=== PATIENT | female | born 1970 | race Caucasian/White ===

== ENCOUNTER 2022-08-13 01:37 | Emergency (ER) | payer OTHER ==
[2022-08-13 01:49] VITALS: BP 91/56; PULSE 72; RESP 18; TEMP 98.6
[2022-08-13] MEDS ORDERED: HYDROmorphone 1 MG/ML 1 ML SYRINGE IM STA (02:10)
[2022-08-13] MEDS ORDERED: KETOROLAC 15 MG/ML 1 ML VIAL IVP STA (02:27)
--- NOTE | 2022-08-13 02:27 | ED ---
General Adult HPI - General Chief complaint: Extremity Injury, Lower Stated complaint: Broken Left Ankle Time Seen by Provider: 08/13/22 01:40 Source: patient, RN notes reviewed, old records reviewed Mode of arrival: wheelchair Limitations: no limitations - History of Present Illness Initial comments: 51-year-old female presents with trip and fall and left ankle pain. Denies head or neck trauma. No anticoagulation. Injury isolated to the left ankle. Patient felt a little significant snap and was unable to bear weight secondary to pain. - Related Data Previous Rx's Medication Instructions Recorded HYDROcodone/APAP 5-325MG [[place] 1 tab PO Q6HR PRN #12 tab 08/13/22 5-325] Ibuprofen [Motrin] 600 mg PO Q8HR PRN #24 tab 08/13/22 Allergies Allergy/AdvReac Type Severity Reaction Status Date / Time No Known Allergies Allergy Verified 08/13/22 01:49 Review of Systems ROS Statement: Those systems with pertinent positive or pertinent negative responses have been documented in the HPI. ROS Other: All systems not noted in ROS Statement are negative. Past Medical History Past Medical History: No Reported History History of Any Multi-Drug Resistant Organisms: None Reported Past Surgical History: Appendectomy Additional Past Surgical History / Comment(s): Colon polyps removal Past Psychological History: Anxiety Smoking Status: Current every day smoker Past Alcohol Use History: Occasional Past Drug Use History: None Reported General Exam Limitations: no limitations General appearance: alert, in no apparent distress Head exam: Present: atraumatic, normocephalic Eye exam: Present: normal appearance, PERRL ENT exam: Present: normal exam Neck exam: Present: normal inspection. Absent: tenderness, meningismus Respiratory exam: Present: normal lung sounds bilaterally. Absent: respiratory distress, wheezes Cardiovascular Exam: Present: regular rate, normal rhythm GI/Abdominal exam: Present: soft. Absent: distended, tenderness Extremities exam: Present: other (Deformity noted to the left ankle. Normal cap refill, 2+ pedal pulse) Neurological exam: Present: alert, oriented X3 Psychiatric exam: Present: normal affect, normal mood Skin exam: Present: warm, dry, intact. Absent: cyanosis, diaphoretic Course Vital Signs 08/13/22 01:44 Temperature 98.6 F Pulse Rate 72 Respiratory 18 Rate Blood Pressure 91/56 O2 Sat by Pulse 98 Oximetry Procedures - Orthopedic Fracture Reduction Fracture #1 Consent Obtained: verbal consent Side: left Fracture Reduction Location: tibia, fibula Analgesia: other (Toradol and Dilaudid) Technique: direct manipulation Post Reduction X-rays Demonstrate: acceptable reduction Post-Reduction Neuro Exam: intact Post-Reduction Vascular Exam: intact Splint Applied: Yes Patient Tolerated Procedure: well - Orthopedic Splinting/Casting Injury #1 Side: left Lower Extremity Injury Location: ankle Lower Extremity Immobilizer: posterior splint, stirrup splint Other Orthopedic Equipment: crutches Medical Decision Making - Medical Decision Making Was pt. sent in by a medical professional or institution (, PA, TANK TRUCK MILK RECEIVER, urgent care, hospital, or [place] [facility]...) When possible be specific @ -No Did you speak to anyone other than the patient for history (EMS, parent, family, police, friend...)? What history was obtained from this source @ -No Did you review nursing and triage notes (agree or disagree)? Why? @ -I reviewed and agree with nursing and triage notes Were old charts reviewed (outside hosp., previous admission, EMS record, old EKG, old radiological studies, urgent care reports/EKG's, [place] [facility] records)? Report findings @ -No old charts were reviewed Differential Diagnosis (chest pain, altered mental status, abdominal pain women, abdominal pain men, vaginal bleeding, weakness, fever, dyspnea, syncope, headache, dizziness, GI bleed, back pain, seizure, CVA, palpatations, mental health, musculoskeletal)? @ -Differential Musculoskeletal Muscular strain, contusion, ligament sprain, fracture, arthritis, septic arthritis, bursitis, cellulitis, muscle spasm, nerve compression, DVT, arterial occlusion, herpes zoster, electrolyte abnormality, tumor.... This is not meant to be in all inclusive list EKG interpreted by me (3pts min.). @ -As above X-rays interpreted by me (1pt min.). @ -Reviewed by myself, trimalleolar fracture with dislocation of the ankle. Repeat films shows satisfactory reduction. CT interpreted by me (1pt min.). @ -None done U/S interpreted by me (1pt. min.). @ -None done What testing was considered but not performed or refused? (CT, X-rays, U/S, labs)? Why? @ -None What meds were considered but not given or refused? Why? @ -None Did you discuss the management of the patient with other professionals (professionals i.e. , PA, TANK TRUCK MILK RECEIVER, lab, RT, psych nurse, mental health social worker, black and white printer operator, teacher, banking services officer, housing case manager)? Give summary @ -Dr. Fleming covering for orthopedics Was smoking cessation discussed for >3mins.? @ -No Was critical care preformed (if so, how long)? @ -No Were there social determinants of health that impacted care today? How? (Homelessness, low income, unemployed, alcoholism, drug addiction, transportation, low edu. Level, literacy, decrease access to med. care, [place] [facility], rehab)? @ -No Was there de-escalation of care discussed even if they declined (Discuss DNR or withdrawal of care, Hospice)? DNR status @ -No What co-morbidities impacted this encounter? (DM, HTN, Smoking, COPD, CAD, Cancer, CVA, ARF, Chemo, Hep., AIDS, mental health diagnosis, sleep apnea, morbid obesity)? @ -None Was patient admitted / discharged? Hospital course, mention meds given and route, prescriptions, significant lab abnormalities, going to OR and other pertinent info. @ -51-year-old female with mechanical fall and left ankle injury. Patient has x-ray of trimalleolar fracture dislocation of the left ankle. She does have normal sensation and 2+ pedal pulses. This was able to be reduced with intramuscular medication not requiring procedural sedation. Repeat x-ray does show significant improvement in fracture alignment with residual subluxation. Patient has brisk cap refill and normal pulse exam. I did discuss case with Dr. Fleming covering for orthopedics. The patient lives in [place] and it is felt that the patient would be best served by returning home for fracture management at home. She is prescribed pain medication. She will be nonweightbearing she's given crutches in the emergency department. She is provided at risk for follow-up in [place]. She is advised to return to this emergency department or any emergency department if she should develop new or worsening symptoms or pain is not manageable. Undiagnosed new problem with uncertain prognosis? @ -No Drug Therapy requiring intensive monitoring for toxicity (Heparin, Nitro, Insulin, Cardizem)? @ -No Were any procedures done? @ -[Yes, fracture reduction and orthopedic splinting Diagnosis/symptom? @ -Trimalleolar fracture of the left ankle Acute, or Chronic, or Acute on Chronic? @ -[Acute Uncomplicated (without systemic symptoms) or Complicated (systemic symptoms)? @ -[Uncomplicated Side effects of treatment? @ -No Exacerbation, Progression, or Severe Exacerbation? @ -No Poses a threat to life or bodily function? How? (Chest pain, [place], [place], pneumonia, PE, COPD, DKA, ARF, appy, cholecystitis, CVA, Diverticulitis, Homicidal, Suicidal, threat to staff... and all critical care pts) @ -No Disposition Clinical Impression: Trimalleolar fracture of left ankle Disposition: HOME SELF-CARE Condition: Fair Instructions (If sedation given, give patient instructions): Ankle Fracture (ED) Additional Instructions: Please follow up with your orthopedic surgeon. If there is any new concerns, pain is not manageable at home. Please feel free to return to the emergency department. Prescriptions: Ibuprofen [Motrin] 600 mg PO Q8HR PRN #24 tab PRN Reason: Pain HYDROcodone/APAP 5-325MG [[place] 5-325] 1 tab PO Q6HR PRN #12 tab PRN Reason: Pain Is patient prescribed a controlled substance at d/c from ED?: No Referrals: None,Stated [REFERRING] - 1-2 days Mukesh Fleming MD [Medical Doctor] - 1-2 days Time of Disposition: 02:49
--- NOTE | 2022-08-13 02:35 | XR ---
EXAM: XR Left Ankle Complete, 3 or More Views CLINICAL HISTORY: ITS.REASON XR Reason: fall TECHNIQUE: Frontal, lateral and oblique views of the left ankle. COMPARISON: No relevant prior studies available. FINDINGS: Bones/joints: Trimalleolar eversion left ankle fracture dislocation. Moderate calcaneal heel spur. The distal tibia is dislocated anteriorly relative to the talus. Posterior malleolus fracture involves approximately a third of the distal tibia. Soft tissues: Diffuse soft tissue swelling. IMPRESSION: Trimalleolar eversion left ankle fracture dislocation.
[2022-08-13] MEDS ORDERED: HYDROcodone/APAP 5-325MG 1 EACH TAB PO STA (02:48)
--- NOTE | 2022-08-13 03:13 | XR ---
EXAM: XR Left Ankle Complete, 3 or More Views CLINICAL HISTORY: ITS.REASON XR Reason: fall TECHNIQUE: Frontal, lateral and oblique views of the left ankle. COMPARISON: 08/13/2022 at 1:58 AM FINDINGS: Bones/joints: There is been recent reduction of the ankle dislocation in near anatomic position. There remains mild widening of the medial ankle mortise. The trimalleolar fracture remains. Images taken through a posterior splint limits fine bony detail. Trimalleolar fracture. Soft tissues: Unremarkable. IMPRESSION: 1. Reduction of left ankle fracture dislocation in near anatomic position.
== END 2022-08-13 03:24 | disposition home or self-care (01) ==
LOC: EC 01:37
DX: S82.852A Displaced trimalleolar fracture of left lower leg, initial encounter for closed fracture (principal); F17.200 Nicotine dependence, unspecified, uncomplicated; Z86.59 Personal history of other mental and behavioral disorders; W01.0XXA Fall on same level from slipping, tripping and stumbling without subsequent striking against object, initial encounter
CPT/HCPCS: 73600; 99283; 96374; 96372; 27825; J1170; J1885

== ENCOUNTER 2022-08-13 13:07 | Observation (INO) | payer OTHER ==
[2022-08-13] MEDS ORDERED: MORPHINE SULFATE 4 MG/ML SYRINGE IM STA (13:35)
--- NOTE | 2022-08-13 13:44 | ED ---
General Adult HPI - General Source: patient Mode of arrival: ambulatory Limitations: no limitations <Alonzo Camara - Last Filed: 08/13/22 14:58> <Luis Manuel Mendoza - Last Filed: 08/13/22 16:31> - General Chief complaint: Recheck/Abnormal Lab/Rx Stated complaint: Recheck Time Seen by Provider: 08/13/22 13:19 - History of Present Illness Initial comments: Dictation was produced using [employer] dictation software. please excuse any grammatical, word or spelling errors. Chief Complaint: 51-year-old female presents emergency with left leg pain History of Present Illness: 51-year-old female presents to the emergency department for left leg pain. She is in the emergency department yesterday afte r having being diagnosed with trimalleolar fracture. Patient is from out of town. They're visiting at a camping site. Patient injured injury after tripping and falling. Patient states that she feels like the splint is too tight. She also would like to be evaluated by for an ankle specialist here. The ROS documented in this emergency department record has been reviewed and confirmed by me. Those systems with pertinent positive or negative responses have been documented in the HPI. All other systems are other negative and/or noncontributory. (Alonzo Camara) - Related Data Previous Rx's Medication Instructions Recorded HYDROcodone/APAP 5-325MG [[place] 1 tab PO Q6HR PRN #12 tab 08/13/22 5-325] Ibuprofen [Motrin] 600 mg PO Q8HR PRN #24 tab 08/13/22 Allergies Allergy/AdvReac Type Severity Reaction Status Date / Time No Known Allergies Allergy Verified 08/13/22 13:12 Review of Systems ROS Other: All systems not noted in ROS Statement are negative. <Alonzo Camara - Last Filed: 08/13/22 14:58> ROS Other: All systems not noted in ROS Statement are negative. <Luis Manuel Mendoza - Last Filed: 08/13/22 16:31> ROS Statement: Those systems with pertinent positive or pertinent negative responses have been documented in the HPI. Past Medical History Past Medical History: No Reported History History of Any Multi-Drug Resistant Organisms: None Reported Past Surgical History: Appendectomy Additional Past Surgical History / Comment(s): Colon polyps removal Past Psychological History: Anxiety Smoking Status: Current every day smoker Past Alcohol Use History: Occasional Past Drug Use History: None Reported <Alonzo Camara - Last Filed: 08/13/22 14:58> General Exam Limitations: no limitations <Alonzo Camara - Last Filed: 08/13/22 14:58> - General Exam Comments Initial Comments: PHYSICAL EXAM: General Impression: Alert and oriented x3, not in acute distress HEENT: Normocephalic atraumatic, extra-ocular movements intact, pupils equal and reactive to light bilaterally, mucous membranes moist. Cardiovascular: Heart regular rate and rhythm Chest: Able to complete full sentences, no retractions, no tachypnea Musculoskeletal: Pulses present and equal in all extremities, no peripheral edema Motor: no focal deficits noted Neurological: CN II-XII grossly intact, no focal motor or sensory deficits noted Skin: Intact with no visualized rashes Psych: Normal affect and mood Left lower extremity: Splint in place (Alonzo Camara) Course <Luis Manuel Mendoza - Last Filed: 08/13/22 16:31> Vital Signs 08/13/22 08/13/22 08/13/22 13:10 14:47 15:00 Temperature 98 F Pulse Rate 77 60 64 Respiratory 18 15 22 Rate Blood Pressure 161/80 107/82 O2 Sat by Pulse 98 Oximetry 08/13/22 08/13/22 08/13/22 15:10 15:22 15:27 Temperature Pulse Rate 70 60 65 Respiratory 18 18 18 Rate Blood Pressure 121/56 91/70 103/56 O2 Sat by Pulse 98 99 Oximetry 08/13/22 08/13/22 15:32 15:42 Temperature Pulse Rate 65 70 Respiratory 18 18 Rate Blood Pressure 116/78 116/78 O2 Sat by Pulse 98 98 Oximetry - Reevaluation(s) Reevaluation #1: 08/13/22 16:17 Case and post-reduction left ankle x-ray findings were discussed with Dr. Fleming (orthopedic surgery). He recommends/accepts hospital admission. He requests keeping the patient NPO after midnight and consulting medicine for medical clearance. He has no further recommendations at this time. 08/13/22 16:24 Patient is aware of her x-ray findings and my discussion with Dr. Fleming as above. Patient denies development of any new symptoms while in the ED. Patient agrees with hospital admission at this time. (Luis Manuel Mendoza) Procedures - Orthopedic Fracture Reduction Fracture #1 Consent Obtained: verbal consent Side: left Fracture Reduction Location: tibia, fibula Analgesia: procedural sedation Technique: direct manipulation Post Reduction X-rays Demonstrate: other (Minimal, if any, reduction compared to prior x-rays from today) Post-Reduction Neuro Exam: intact Post-Reduction Vascular Exam: intact Splint Applied: Yes Patient Tolerated Procedure: well, no complications - Orthopedic Splinting/Casting Injury #1 Side: left Lower Extremity Injury Location: ankle Lower Extremity Immobilizer: posterior splint, stirrup splint Other Orthopedic Equipment: crutches - Procedural Sedation *Procedural Sedation Start Time: 15:22 *Procedural Sedation Stop Time: 15:42 *Indications: fracture/dislocation reduction *Previous Adverse Reaction to Anesthesia/Sedation?: No *ASA Class: II *Mallampati Airway Score: 3 *Time of Last PO Intake: 11:30 Preparation: online editor applied, pulse oximeter, capnometry used, supplemental O2 applied, suction/airway equipment at bedside IV Propofol Dose (mgs): 80 Complications: none Patient Tolerated Procedure: well, no complications <Luis Manuel Mendoza - Last Filed: 08/13/22 16:31> Medical Decision Making <Alonzo Camara - Last Filed: 08/13/22 14:58> <Luis Manuel Mendoza - Last Filed: 08/13/22 16:31> - Medical Decision Making Was pt. sent in by a medical professional or institution (, PA, MEDICAL RECEPTION, urgent care, hospital, or senior living...) When possible be specific @ -No Did you speak to anyone other than the patient for history (EMS, parent, family, police, friend...)? What history was obtained from this source @ -No Did you review nursing and triage notes (agree or disagree)? Why? @ -I reviewed and agree with nursing and triage notes Were old charts reviewed (outside hosp., previous admission, EMS record, old EKG, old radiological studies, urgent care reports/EKG's, senior living records)? Report findings @ - x-rays were reviewed showing that patient had fracture with successful reduction Differential Diagnosis (chest pain, altered mental status, abdominal pain women, abdominal pain men, vaginal bleeding, musculoskeletal, weakness, fever, dyspnea, syncope, headache, dizziness, GI bleed, back pain, seizure, CVA, palpatations, mental health)? @ -not applicable EKG interpreted by me (3pts min.). @ -None done X-rays interpreted by me (1pt min.). @ -Splint was loosened and Christofer wrap was reapplied. Repeat x-ray shows dislocation at the ankle seen on the lateral views CT interpreted by me (1pt min.). @ -None done U/S interpreted by me (1pt. min.). @ -None done What testing was considered but not performed or refused? (CT, X-rays, U/S, labs)? Why? @ -None What meds were considered but not given or refused? Why? @ -None Did you discuss the management of the patient with other professionals (professionals i.e. , PA, MEDICAL RECEPTION, lab, RT, psych nurse, social services specialist, core drill operator helper, teacher, surveillance dual rate officer, casework manager)? Give summary @ -discuss with clinical specialist, Dr. Fleming reports that patient is not a candidate for surgery due to swelling. Does recommend reduction with procedur al sedation with reapplication of splint Was smoking cessation discussed for >3mins.? @ -No Was critical care preformed (if so, how long)? @ -No Were there social determinants of health that impacted care today? How? (Homelessness, low income, unemployed, alcoholism, drug addiction, transportation, low edu. Level, literacy, decrease access to med. care, penitentiary, rehab)? @ -No Was there de-escalation of care discussed even if they declined (Discuss DNR or withdrawal of care, Hospice)? DNR status @ -No What co-morbidities impacted this encounter? (DM, HTN, Smoking, COPD, CAD, Cancer, CVA, ARF, Chemo, Hep., AIDS, mental health diagnosis, sleep apnea, morbid obesity)? @ -None Was patient admitted / discharged? Hospital course, mention meds given and route, prescriptions, significant lab abnormalities, going to OR and other pertinent info. @ -See above Undiagnosed new problem with uncertain prognosis? @ -No Drug Therapy requiring intensive monitoring for toxicity (Heparin, Nitro, Insulin, Cardizem)? @ -No Were any procedures done? @ -seee above Diagnosis/symptom? Acute, or Chronic, or Acute on Chronic? Uncomplicated (without systemic symptoms) or Complicated (systemic symptoms)? @ -1. Trimalleolar ankle fracture Side effects of treatment? @ -No Exacerbation, Progression, or Severe Exacerbation? @ -No Poses a threat to life or bodily function? How? (Chest pain, [place], [place], pneumonia, PE, COPD, DKA, ARF, appy, cholecystitis, CVA, Diverticulitis, Homicidal, Suicidal, threat to staff... and all critical care pts) @ -yes care signed out to Dr. Mendoza (Alonzo Camara) Was patient admitted / discharged? Hospital course, mention meds given and r oute, prescriptions, significant lab abnormalities, going to OR and other pertinent info. @ -Patient was endorsed to me by Dr. Camara (secondary to shift change). Dr. Camara asked that I attempt left ankle fracture/dislocation reduction under procedural sedation. Left ankle reduction was performed under procedural sedation without any significant improvement in alignment. Post-reduction left ankle x-rays were reviewed myself and do not demonstrate any significant improvement in alignment. This was discussed with Dr. Fleming (orthopedic surgery) over the telephone, and he recommends/accepts hospital admission. Patient will be admitted to the hospital. Undiagnosed new problem with uncertain prognosis? @ -No Drug Therapy requiring intensive monitoring for toxicity (Heparin, Nitro, Insulin, Cardizem)? @ -No Were any procedures done? @ -Yes, left ankle fracture/dislocation reduction and splinting under procedural sedation. Diagnosis/symptom? @ -Trimalleolar left ankle fracture/dislocation Acute, or Chronic, or Acute on Chronic? @ -Acute Uncomplicated (without systemic symptoms) or Complicated (systemic symptoms)? @ -Uncomplicated Side effects of treatment? @ -No Exacerbation, Progression, or Severe Exacerbation? @ -No Poses a threat to life or bodily function? How? (Chest pain, [place], [place], pneumonia, PE, COPD, DKA, ARF, appy, cholecystitis, CVA, Diverticulitis, Homicidal, Suicidal, threat to staff... and all critical care pts) @ -No (Luis Manuel Mendoza) - Radiology Data Post reduction left ankle x-rays: Stable alignment compared to most recent prior radiograph no new fractures. (Luis Manuel Mendoza) Disposition <Alonzo Camara - Last Filed: 08/13/22 14:58> Is patient prescribed a controlled substance at d/c from ED?: No Time of Disposition: 16:31 <Luis Manuel Mendoza - Last Filed: 08/13/22 16:31> Clinical Impression: Fracture dislocation of left ankle Disposition: ADMITTED IP TO THIS HOSP Condition: Stable Referrals: Nonstaff,Physician [Primary Care Provider] - 1-2 days
--- NOTE | 2022-08-13 13:57 | XR ---
EXAMINATION TYPE: XR ankle complete LT DATE OF EXAM: 08/13/2022 CLINICAL HISTORY: leg pain known fracture. TECHNIQUE: Frontal, lateral and oblique images of the left ankle are obtained. COMPARISON: Left ankle x-rays earlier today FINDINGS: Overlying splint material is seen which is noted to lower the radiographic sensitivity. Slightly displaced comminuted fracture through the lateral malleolus is redemonstrated. Alignment tylor ears similar. Slightly displaced fracture through the medial malleolus is redemonstrated. Alignment a ppears similar. Slightly displaced intra-articular fracture of the posterior malleolus is again seen. Alignment appears similar. Ankle mortise shows persistent abnormal widening anteriorly. There is slight posterior positioning of the talus with severe narrowing that appears slightly more prominent from prior study. Small to moderate size inferior calcaneal spur incidentally noted. IMPRESSION: As above.
[2022-08-13] MEDS ORDERED: PROPOFOL 10 MG/ML 20 ML VIAL IV ONE (14:16)
--- NOTE | 2022-08-13 16:10 | XR ---
EXAMINATION TYPE: XR ankle limited LT DATE OF EXAM: 08/13/2022 3:41 PM INDICATION: Patient age:Female; 51 years old; Reason for study: post reduction; COMPARISON: Same day radiographs TECHNIQUE: The left ankle is imaged in frontal, lateral projections. FINDINGS: Improved anatomic alignment of the distal fibula and tibia fractures. No new fractures apparent visua lized. IMPRESSION: Stable alignment compared to most recent prior radiograph no new fractures.
[2022-08-13] MEDS ORDERED: NALOXONE 0.4 MG/ML 1 ML VIAL IV PRN (16:32)
[2022-08-13] MEDS: MORPHINE SULFATE 4 MG/ML SYRINGE IV PRN ×2 (18:12→22:15)
--- NOTE | 2022-08-13 20:01 | P.HPOR ---
History of Present Illness H&P Date: 08/13/22 This patient is a 51- year old female who is a current every day smoker that initially presented to [facility] emergency department this morning around 2am due to left ankle injury. Patient is from [place] and is visiting for the weekend. She states she was walking out of a cabin and rolled her left ankle. She was unable to bear weight due to pain. X-rays in the emergency department revealed a left trimalleolar ankle fracture dislocation. Her ankle was reduced and she was placed into a splint with instructions to follow-up with an orthopedic surgeon at home. Patient again presented to the emergency department this afternoon due to increasing pain and swelling in the ankle. X- rays re-demonstrated fracture dislocation. Attempt were made for reduction without success. Dr. Fleming was contacted and admission was recommended for ex fix placement. Internal medicine has been consulted for pre-op medical evaluation. Patient is examined in the emergency department this afternoon with Dr. Fleming. She is complaining of isolated left ankle pain. No additional complaints. Vital signs stable. Past Medical History Past Medical History: No Reported History History of Any Multi-Drug Resistant Organisms: None Reported Past Surgical History: Appendectomy Additional Past Surgical History / Comment(s): Colon polyps removal Past Psychological History: Anxiety Smoking Status: Current every day smoker Past Alcohol Use History: Occasional Past Drug Use History: None Reported - Past Family History Mother History Unknown: Yes Medications and Allergies Home Medications Medication Instructions Recorded Confirmed Type ALPRAZolam [Xanax] 0.5 mg PO DAILY 08/13/22 08/13/22 History Gabapentin [Neurontin] 300 mg PO TID@0900,1300,1700 08/13/22 08/13/22 History Gabapentin [Neurontin] 600 mg PO HS 08/13/22 08/13/22 History HYDROcodone/APAP 5-325MG [[place] 1 tab PO Q6HR PRN #12 tab 08/13/22 08/13/22 Rx 5-325] Ibuprofen [Motrin] 600 mg PO Q8HR PRN #24 tab 08/13/22 08/13/22 Rx Sertraline [Zoloft] 100 mg PO DAILY 08/13/22 08/13/22 History Venlafaxine HCl [Effexor XR] 150 mg PO DAILY 08/13/22 08/13/22 History busPIRone HCL 15 mg PO TID 08/13/22 08/13/22 History Allergies Allergy/AdvReac Type Severity Reaction Status Date / Time No Known Allergies Allergy Verified 08/13/22 13:12 Physical Examination On examination, patient is sitting up on the gurney in no acute distress. She is alert and orientated x3. Her head appears normocephalic and atraumatic, her breathing appears non-labored. On inspection of her bilateral upper extremities, no obvious deformities or signs of trauma. On inspection of her right lower extremity, no obvious deformities or signs of trauma. On inspection of the left ankle, there is short leg splint in place. Visible portion of the toes are warm and well-perfused. Patient is able to wiggle toes appropriately. Results Left ankle x-ray 08/13/22: Trimalleolar ankle fracture dislocation with no significant improvement in alignment on post-reduction films Assessment and Plan Assessment: Left trimalleolar fracture dislocation Plan: - Clinical and imaging findings were discussed with the patient. Recommend ankle external fixator placement due to failed reduction and splinting x2 of patient's trimalleolar ankle fracture dislocation. Explained to the patient in detail this is only for acute management to provide fracture stabilization and ex fix will only be placed temporarily. Patient will require a second surgery at a later date for ex fix removal and ORIF once soft tissue swelling improves. Patient is from [place], therefore we will plan to discharge patient following ex fix placement, and she will need to follow-up with an orthopedic surgeon at home for definitive management of her ankle fracture. Patient verbalizes understanding and agreement with this plan. - We also discussed importance of smoking cessation with this injury. - Internal medicine has been consulted for pre-op medical clearance. - Will plan for OR tomorrow morning. Maintain current splint. - NPO diet at midnight.
[2022-08-14] MEDS: HYDROcodone/APAP 5-325MG 1 EACH TAB PO PRN (00:07)
[2022-08-14] MEDS: MORPHINE SULFATE 4 MG/ML SYRINGE IV PRN ×5 (02:02→23:15)
--- NOTE | 2022-08-14 02:24 | P.CONS ---
History of Present Illness - Reason for Consult Consult date: 08/13/22 pre op evaluation - Chief Complaint left ankle pain - History of Present Illness 51 year old female with no significant past medical history patient presented initially after a fall , was diagnosed with left ankle displaced fracture, she failed reduction and splint as she had to return to the hospital due to increase pain and swelling , then was attempted again with no improvement , ortho accepted the the admission for surgical intervention patient reports twisting her right foot and falling but lead to pain and fracture in her left leg. she denies any history of CVA, CAD , CHF, DM , CKD, she denies any recent hospitalization for arrhythmia or VA. patient is visiting from [facility]. she does admit to daily heavy smoking she otherwise denies any dizzy spells, chest pain , exercise intolerance , SOB, abd pain , nausea or vomiting, denies any bowel or urinary habit changes . she is active at baseline and can perform heavy house chores. Review of Systems Pertinent positives as noted in HPI. All other systems were reviewed and are negative Past Medical History Past Medical History: No Reported History History of Any Multi-Drug Resistant Organisms: None Reported Past Surgical History: Appendectomy Additional Past Surgical History / Comment(s): Colon polyps removal Past Psychological History: Anxiety Smoking Status: Current every day smoker Past Alcohol Use History: Occasional Past Drug Use History: None Reported - Past Family History Mother History Unknown: Yes Medications and Allergies Home Medications Medication Instructions Recorded Confirmed Type ALPRAZolam [Xanax] 0.5 mg PO DAILY 08/13/22 08/13/22 History Gabapentin [Neurontin] 300 mg PO TID@0900,1300,1700 08/13/22 08/13/22 History Gabapentin [Neurontin] 600 mg PO HS 08/13/22 08/13/22 History HYDROcodone/APAP 5-325MG [[place] 1 tab PO Q6HR PRN #12 tab 08/13/22 08/13/22 Rx 5-325] Ibuprofen [Motrin] 600 mg PO Q8HR PRN #24 tab 08/13/22 08/13/22 Rx Sertraline [Zoloft] 100 mg PO DAILY 08/13/22 08/13/22 History Venlafaxine HCl [Effexor XR] 150 mg PO DAILY 08/13/22 08/13/22 History busPIRone HCL 15 mg PO TID 08/13/22 08/13/22 History Allergies Allergy/AdvReac Type Severity Reaction Status Date / Time No Known Allergies Allergy Verified 08/13/22 13:12 Physical Exam Vitals: Vital Signs Temp Pulse Pulse Resp BP BP Pulse Ox 08/13/22 19:36 98.5 F 74 16 111/66 98 08/13/22 18:20 98.0 F 77 18 123/73 98 08/13/22 16:51 68 18 134/85 99 08/13/22 15:42 70 18 116/78 98 08/13/22 15:32 65 18 116/78 98 08/13/22 15:27 65 18 103/56 99 08/13/22 15:22 60 18 91/70 98 08/13/22 15:10 70 18 121/56 08/13/22 15:00 64 22 107/82 08/13/22 14:47 60 15 08/13/22 13:10 98 F 77 18 161/80 98 Intake and Output 08/13/22 08/13/22 08/13/22 06:59 14:59 22:59 Other: Voiding Method External Catheter # Voids 0 Weight 108.862 kg 108.862 kg Constitutional: No acute distress, conversant, pleasant Eyes: Anicteric sclerae, moist conjunctiva, Pupils equal round reactive to light ENMT: NC/AT Oropharynx clear, no erythema, or exudates Neck: Supple, no masses, or JVD No carotid bruits No thyromegaly Lungs: Clear to auscultation Clear to percussion Normal respiratory effort, no accessory muscle use Cardiovascular: Heart regular in rate and rhythm, No murmurs, gallops, or rubs No peripheral edema Abdominal: Soft Nontender, no guarding, rebound or rigidity Abdomen moving with respiration Normoactive bowel sounds No hepatomegaly, No splenomegaly No palpable mass No abdominal wall hernia noted Skin: Normal temperature, tone, texture, turgor No induration No subcutaneous nodules No rash, lesions No ulcers Extremities: splint and guicho wrapping of her left lower extremity , capillary refill is immediate No digital cyanosis No clubbing Pedal pulses intact and symmetrical Radial pulses intact and symmetrical No calf tenderness Psychiatric: Alert and oriented to person, place and time Appropriate affect fair judgment Neuro Muscles Strength 5/5 in all 4 extremities with limited exam over left lower extremity due to fracture and pain Sensation to light touch grossly present throughout Cranial nerves II-XII grossly intact Lymphatics: no palpable cervical or supraclavicular lymph nodes Assessment and Plan Assessment: Morbidly obese counseled regarding life style modification and weight loss daily tobacco smoker nicotine replacement therapy counseled to quit smoking left ankle displaced fracture failed closed reduction management per orthopedic team pre op clearance patient is 51 year old Female, presented with left ankle pain. Patient denies any recent history or symptoms of congestive heart failure, myocardial infarcti on, syncope, arrhythmia, palpitation, or exertional dyspnea. Patient denies any past medical history of stroke, CAD, CHF, CKD, or DM. Patient is functional at baseline at >4 METs she is able perform heavy house chores with no limitations . Patient labs ordered, EKG ordered. Patient is scheduled for orthopedic surgery to fix left ankle fracture. This is of intermediate risk, however, patient has no medical risk factors from her past medical history. If unremarkable labs and EKG (still pending), then patient can proceed to surgery with moderate but acceptable perioperative cardi ovascular risk factors. no modifiable risk factors at this time, This has been explained to the patient , all questions answered, patient verbalized understanding and agreement thank you for consultation
[2022-08-14] MEDS ORDERED: LACTATED RINGERS 1,000 ML IV ONE ×2 (07:27→09:26)
[2022-08-14] MEDS ORDERED: MIDAZOLAM 2 MG/2 ML VIAL IVP ONE (07:34)
[2022-08-14] MEDS ORDERED: fentaNYL (PF) 50 MCG/ML 2 ML AMP IVP ONE (07:34)
[2022-08-14] MEDS ORDERED: LIDOCAINE 2% INJ 20 MG/ML (2 ML VIAL) ONE (07:49)
[2022-08-14] MEDS ORDERED: ROPIVACAINE 5 MG/ML 30 ML VIAL ONE (07:49)
[2022-08-14] MEDS ORDERED: fentaNYL (PF) 50 MCG/ML 2 ML AMP ONE (07:49)
[2022-08-14] MEDS ORDERED: DEXAMETHASONE SOD PHOSPHATE 4 MG/ML 1 ML VIAL ONE (07:49)
[2022-08-14] MEDS ORDERED: SUCCINYLCHOLINE CHLORIDE 200 MG/10 ML VIAL IV ONE (07:49)
[2022-08-14] MEDS ORDERED: PHENYLEPHRINE-0.9% NACL SYG 1,000 MCG/10 ML SYRINGE ONE (07:49)
[2022-08-14] MEDS ORDERED: PROPOFOL 10 MG/ML 20 ML VIAL IV ONE (07:49)
[2022-08-14] MEDS ORDERED: ONDANSETRON 4 MG/2 ML VIAL IVP ONE (07:50)
[2022-08-14] MEDS ORDERED: DEXAMETHASONE SOD PHOSPHATE 4 MG/ML 1 ML VIAL IVP ONE (07:50)
[2022-08-14] MEDS ORDERED: SODIUM CHLORIDE 0.9% 50 ML with ceFAZolin 2,000 MG IV ONE ×2 (08:04)
--- NOTE | 2022-08-14 08:10 | P.ANPRN ---
Procedure Note - Anesthesia - Nerve Block Performed Left Adductor Canal Single Time Out Performed: Yes Date of Procedure: 08/14/22 Procedure Start Time: 07:33 Procedure Stop Time: 07:40 Location of Patient: PreOp Indication: Acute Post-Operative Pain, Requested by Surgeon Sedation Type: Sedate with meaningful contact maintained Preparation: Sterile Prep, Sterile Dressing Position: Supine Catheter: None Needle Types: Facet Needle Gauge: 20 Ultrasound used to visualize needle placement: Yes Ultrasound used to observe medication spread: Yes Injectate: 0.5% Ropivacaine (see comment for volume) (10 ml + decadron 5 mg) Blood Aspirated: No Pain Paresthesia on Injection Noted: No Resistance on Injection: Normal Image Stored and Saved: Yes Events: Uneventful and Well Tolerated Left Popliteal Single Time Out Performed: Yes Date of Procedure: 08/14/22 Procedure Start Time: 07:41 Procedure Stop Time: 07:51 Location of Patient: PreOp Indication: Acute Post-Operative Pain, Requested by Surgeon Sedation Type: Sedate with meaningful contact maintained Preparation: Sterile Prep, Sterile Dressing Position: Right Lateral Catheter: None Needle Types: Facet Needle Gauge: 20 Ultrasound used to visualize needle placement: Yes Ultrasound used to observe medication spread: Yes Injectate: 0.5% Ropivacaine (see comment for volume) (20 ml + decadron 5 mg) Blood Aspirated: No Pain Paresthesia on Injection Noted: No Resistance on Injection: Normal Image Stored and Saved: Yes Events: Uneventful and Well Tolerated
[2022-08-14] MEDS ORDERED: hydrOXYzine pamoate 25 MG CAP PO PRN (08:56)
[2022-08-14] MEDS ORDERED: ONDANSETRON 4 MG/2 ML VIAL IVP PRN (08:56)
--- NOTE | 2022-08-14 09:07 | P.OP ---
Date of Procedure: 08/14/22 Preoperative Diagnosis: 1. Left trimalleolar ankle fracture dislocation 2. Current one pack per day cigarette smoker 3. BMI 42.5 4. Right ankle sprain with varus laxity Postoperative Diagnosis: Same Procedure(s) Performed: 1. Application of left ankle spanning external fixator, delta frame as part of a staged procedure 2. Manual application of joint stress for radiography by physician, right ankle Anesthesia: DANIA, regional Surgeon: Mukesh Fleming Laser Printing Operator #1: Rajesh Diaz Estimated Blood Loss (ml): 10 Pathology: none sent Condition: stable Disposition: PACU Indications for Procedure: The patient is a very pleasant 51-year-old female with multiple medical problems including being a current every day cigarette smoker and having a BMI 42.5 who sustained an injury to her left and right ankle when she slipped and fell. The patient came to our ER early Monday morning was diagnosed with a trimalleolar ankle fracture dislocation. She underwent closed reduction under conscious sedation and application of a splint. She was discharged home. The patient had continued pain in her ankle and return to the ER. The emergency room physician loosened her splint and repeated x-rays which showed dislocation of the ankle. She underwent a second attempt at closed reduction and splinting. Postreduction x-rays following the emergency department attempt at reduction showed subluxation of the ankle mortise. I recommended admitting the patient under my care and placing an external fixator. I met with the patient in the emergency department to discuss this procedure. She understands that this is a temporizing procedure and that she will need definitive fixation once her soft tissue swelling resolves. We discussed potential risks and complications at length including but certainly not limited to risks of anesthesia, superficial infection, deep infection, pin site and complications including infection fracture and neurovascular damage, fracture malunion, fracture malreduction, DVT, PE, other medical complications, and possibly loss of life or limb. Again the patient understands that this is a temporizing measure and that she will need definitive fixation. The patient lives in [place] and would like to have her definitive surgery closer to home. Description of Procedure: The patient is in for preoperative holding and the left ankle was marked with my initials. A block was placed by anesthesia. I reviewed the consent form with the patient and her . All their questions were answered. The patient was then brought back to the operating room. She was positioned on the operati ng room table where a general anesthetic and preoperative antibiotics were given. A timeout was performed identifying the correct patient, operative extremity, and procedure. I began by performing exam under anesthesia of the contralateral right ankle due to swelling and pain noted in preoperative holding. Fluoroscopy was brought in and a manual varus stress and anterior drawer under fluoroscopy was performed. There was both varus laxity with widening of the lateral tibiotalar joint on the AP view and anterior translation of the talus under the tibial plafond and on the lateral view. I interpreted this as chronic ankle instability. We then proceeded to prep and drape the left lower extremity. I began by making stab incisions over the anterior aspect of the middle third of the tibia. Pins and the external fixator set were placed anterior to posterior just medial to the tibial crest under fluoroscopic guidance. A clamp was placed to the 2 pins in the tibia. I then placed a centrally threaded trans-calcaneal pin from medial to lateral through stab incisions on the calcaneus. The external fixator delta frame was assembled, the ankle was reduced, and all pins and screws were tightened. Final fluoroscopic images showed reduction of the ankle mortise on both the AP and lateral views. A kickstand was placed posteriorly to allow the heel to rest off of the bed to avoid pressure sores. Adaptic and Betadine soaked sponges were placed at the pin sites were then wrapped in Kerlix. The entire limb was then wrapped in an Christofer wrap. The patient was awoken from her anesthetic and transferred to the recovery room having tolerated procedure well. Rajesh Diaz PAC describes a skilled clinical physician assistant for patient positioning, placement of external fixator, and application of dressing. Plan: The patient is remain strictly nonweightbearing on her left leg. She'll be treated with antibiotics due to her pin site and smoking history. She was given a boot for her right ankle. She is okay to discharge later today when she is comfortable. We will get her x-rays on disc for her. She will need follow- up with an orthopedic surgeon in [place] early next week to discuss definitive fixation.
--- NOTE | 2022-08-14 09:16 | FL ---
Intraoperative/procedural fluoroscopic services were provided. Total fluoroscopy time is 1 minute 3 s econds with a total of 8 submitted images to PACS. Please see the operative/procedural note for furth er details. DAP: 0.7533
[2022-08-14 09:23] LABS: African American GFR (CKD) 117.7 (60.0-200.0); Albumin/Globulin Ratio 1.96 (1.60-3.17); Anion Gap 9.9 mmol/L (10.00-18.00); BUN/Creat Ratio 23.22 Ratio (12.00-20.00); Calcium 9.1 mg/dL (8.7-10.3); Carbon Dioxide 24.2 mmol/L (20.0-27.5); Globulin 2.1 g/dL (1.6-3.3); Non-African American GFR(CKD) 101.6 (60.0-200.0); Potassium 4.1 mmol/L (3.5-5.5); Total Bilirubin 0.6 mg/dL (0.30-1.20); Total Protein 6.1 g/dL (6.2-8.2)
[2022-08-14 10:24] LABS: Basophils % (A) 0 %; Eosinophils # (A) 0.1 k/uL (0-0.7); Eosinophils % (A) 1 %; HCT 39.1 % (34.0-46.0); HGB 12.7 gm/dL (11.4-16.0); Lymphocytes # (A) 1.4 k/uL (1.0-4.8); Lymphocytes % (A) 13 %; MCH 30.8 pg (25.0-35.0); MCHC 32.4 g/dL (31.0-37.0); MCV 95.1 fL (80.0-100.0); Mean Platelet Volume 9.2; Monocytes # (A) 0.2 k/uL (0-1.0); Monocytes % (A) 2 %; Neutrophils # (A) 9.2 k/uL (1.3-7.7); Neutrophils % (A) 84 %; Platelet Count 142 k/uL (150-450); RBC 4.11 m/uL (3.80-5.40); RDW 13.7 % (11.5-15.5); WBC 10.9 k/uL (3.8-10.6)
[2022-08-14] MEDS: LACTATED RINGERS 1,000 ML IV SCH ×3 (10:29→23:57)
--- NOTE | 2022-08-14 10:42 | P.DS ---
Providers Date of admission: 08/13/22 16:32 Expected date of discharge: 08/14/22 Attending physician: Mukesh Fleming Consults: 08/13/22 16:18 Consult Physician Urgent Consulting Provider: Seb Verdin Consult Reason/Comments: Unstable left ankle fracture; medical clearance for surgery Do you want consulting provider notified?: Yes Primary care physician: Physician Nonstaff Hospital Course: This patient is a 51-year-old female who presented to [facility] emergency department on 08/13/22 with a left trimalleolar ankle fracture dislocation. Attempts at reduction and splinting were made twice and were unsuccessful. It was recommended patient be admitted for placement of ankle spanning external fixator. Patient was taken to the operating room on 08/14/[address] Fleming for placement of right ankle spanning external fixator. The procedure was performed without complication or sequelae. Patient is doing well postoperatively. Plan was discussed with the patient and her and patient may discharge home this afternoon if comfortable. Patient is from [place]. We discussed the importance of following up with orthopedic surgeon early next week for definitive management of her ankle fracture. Please see med rec for accurate list of discharge medications. Patient Condition at Discharge: Stable Plan - Discharge Summary New Discharge Prescriptions: New Aspirin 81 mg PO BID 30 Days #60 tab Sulfamethox-Tmp 800-160Mg [Bactrim DS 800-160 mg] 1 tab PO Q12HR 10 Days #20 tab HYDROcodone/APAP 5-325MG [[place] 5-325] 1 - 2 tab PO Q6HR PRN 7 Days #30 tab PRN Reason: Pain Docusate [Colace] 100 mg PO BID #60 capsule No Action busPIRone HCL 15 mg PO TID ALPRAZolam [Xanax] 0.5 mg PO DAILY Gabapentin [Neurontin] 300 mg PO TID@0900,1300,1700 Ibuprofen [Motrin] 600 mg PO Q8HR PRN #24 tab PRN Reason: Pain HYDROcodone/APAP 5-325MG [[place] 5-325] 1 tab PO Q6HR PRN #12 tab PRN Reason: Pain Venlafaxine HCl [Effexor XR] 150 mg PO DAILY Sertraline [Zoloft] 100 mg PO DAILY Gabapentin [Neurontin] 600 mg PO HS Discharge Medication List ALPRAZolam [Xanax] 0.5 mg PO DAILY 08/13/22 [History] Gabapentin [Neurontin] 300 mg PO TID@0900,1300,1700 08/13/22 [History] Gabapentin [Neurontin] 600 mg PO HS 08/13/22 [History] HYDROcodone/APAP 5-325MG [[place] 5-325] 1 tab PO Q6HR PRN #12 tab 08/13/22 [Rx] Ibuprofen [Motrin] 600 mg PO Q8HR PRN #24 tab 08/13/22 [Rx] Sertraline [Zoloft] 100 mg PO DAILY 08/13/22 [History] Venlafaxine HCl [Effexor XR] 150 mg PO DAILY 08/13/22 [History] busPIRone HCL 15 mg PO TID 08/13/22 [History] Aspirin 81 mg PO BID 30 Days #60 tab 08/14/22 [Rx] Docusate [Colace] 100 mg PO BID #60 capsule 08/14/22 [Rx] HYDROcodone/APAP 5-325MG [[place] 5-325] 1 - 2 tab PO Q6HR PRN 7 Days #30 tab 08/14/22 [Rx] Sulfamethox-Tmp 800-160Mg [Bactrim DS 800-160 mg] 1 tab PO Q12HR 10 Days #20 tab 08/14/22 [Rx] Follow up Appointment(s)/Referral(s): Nonstaff,Physician [Primary Care Provider] - 1-2 days Activity/Diet/Wound Care/Special Instructions: Strict non-weight bearing left lower extremity. Keep operative dressing in place. Keep left ankle elevated for swelling control. Take pain medications as needed. Take antibiotics as prescribed. Take aspirin 81mg BID for blood clot prevention. Follow-up with an orthopedic surgeon next week when you return home for definitive management of your ankle fracture. Please call if you have any questions, Discharge Disposition: HOME SELF-CARE
[2022-08-14 11:19] LABS: Basophils # (A) 0.04 X 10*3/uL (0.00-0.10); Basophils % (A) 0.5 %; Eosinophils # (A) 0.12 X 10*3/uL (0.04-0.35); Eosinophils % (A) 1.4 %; HCT 38.6 % (37.2-46.3); HGB 12.4 g/dL (12.0-15.0); Immature Grans, Automated 0.2 %; Lymphocytes # (A) 3.12 X 10*3/uL (0.90-5.00); Lymphocytes % (A) 37.3 %; MCH 30.9 pg (27.0-32.0); MCHC 32.1 g/dL (32.0-37.0); MCV 96.3 fL (80.0-97.0); Mean Platelet Volume 11.9 fL (9.5-12.2); Monocytes # (A) 0.55 X 10*3/uL (0.20-1.00); Monocytes % (A) 6.6 %; NRBC Per 100 WBC 0 /100 WBCS (0.0-0.0); Neutrophils # (A) 4.51 X 10*3/uL (1.80-7.70); Platelet Count 169 X 10*3/uL (140-440); RBC 4.01 X 10*6/uL (4.10-5.20); RDW 13.7 % (11.5-14.5); WBC 8.36 X 10*3/uL (4.50-10.00)
[2022-08-14 14:14] VITALS: RESP 18
--- NOTE | 2022-08-14 17:18 | P.PN ---
Subjective Progress Note Date: 08/14/22 Hospital course: Patient is a pleasant 51-year-old female with past medical history of nicotine dependence, depression and anxiety. She presented to the emergency department on 08/13/22 status post fall resulting in dislocated trimalleolar ankle fracture. Patient was admitted under orthopedic surgery team and we were consulted for medical clearance and medical management throughout hospitalization. Patient underwent application of right ankle spanning external fixator by Dr. Fleming on 08/14/22. Physical exam: Patient seen and evaluated upon return from OR. She currently reports pain is controlled at this time. at bedside. Vital signs reviewed and stable. General: Nontoxic, no distress and appears stated age. Derm: Skin warm and dry, normal coloration for ethnicity. Head: Atraumatic, normocephalic and symmetric. Eyes: EOMs intact, no lid lag, and anicteric sclera Mouth: no lip lesions, mucus membranes moist Cardiovascular: regular rate and rhythm with normal S1S2, no murmur, positive posterior tibial pulses bilaterally, and cap refill < 2 seconds. Lungs: Respirations even, regular, and unlabored on room air. Lungs CTA bilaterally, no rhonchi, no rales, no wheezing, and no accessory muscle usage. Abdominal: soft, nontender to palpation, no guarding, no appreciable organomegaly Ext: Movement and sensation intact. No gross muscle atrophy, no edema, no contractures right ankle spanning external fixator device in place Neuro: Speech clear, face symmetrical and CN II-XII grossly intact with no noted focal neuro deficits Psych: Alert and oriented to person, place, time, and situation. Appropriate and pleasant affect. Assessment and Plan of Care: Dislocated trimalleolar ankle fracture status post application of right ankle spanning external fixator -Initial plan was for discharge home later today by orthopedic surgery, patient reports pain is uncontrolled and plan is for patient to stay the night in the hospital and discharged home tomorrow as she has a long drive back to [place]. -Symptomatic care and pain management. -Fall precautions -Management of external fixator, DVT prophylaxis, and pain management by primary admitting orthopedic surgery team. Anxiety and depression -Home medications reviewed and reordered Xanax 0.5 mg daily, BuSpar 15 mg 3 times daily, Neurontin 300 mg 3 times daily and 600 mg nightly, Zoloft 100 mg daily, and Effexor 150 mg daily. Nicotine dependence -Recommend smoking cessation -Order placed for nicotine patch 14 mg daily. Thank you for allowing us to participate in the care of this pleasant patient. Do not hesitate to contact us with questions. Someone can be reached from the [facility] hospitalist group all hours of the day at [phone] or via perfect serve. Patient was seen independently by Nurse Pracitioner. This document was prepared using [employer] dictation software. Please allow for errors in clerk of scales, while rare they do occur. Ishmael Obrien NP rendered care for this patient independently, reviewed the findings and plan as documented in the note above. I did not physically speak with or examine the patient on this date. Objective - Vital Signs Vital signs: Vital Signs Temp 97.6 F 08/14/22 13:27 Pulse 96 08/14/22 13:27 Resp 18 08/14/22 13:27 BP 121/72 08/14/22 13:27 Pulse Ox 94 L 08/14/22 13:27 FiO2 Intake & Output 08/13/22 08/14/22 08/14/22 18:59 06:59 18:59 Intake Total 1050 Output Total 200 1260 Balance -200 -210 Weight 108.862 kg Intake: IV 1050 Output: Urine 200 1250 Estimated Blood Loss 10 Other: Voiding Method External Catheter # Voids 0 - Labs CBC & Chem 7: 08/14/22 10:01 08/14/22 05:05 Labs: Abnormal Lab Results - Last 24 Hours (Table) 08/14/22 08/14/22 08/14/22 Range/Units 05:05 05:05 10:01 WBC 10.9 H (3.8-10.6) k/uL RBC 4.01 L (4.10-5.20) X 10*6/uL Plt Count 142 L (150-450) k/uL Neutrophils # 9.2 H (1.3-7.7) k/uL Anion Gap 9.90 L (10.00-18.00) mmol/L BUN/Creatinine Ratio 23.22 H (12.00-20.00) Ratio Glucose 112 H (70-110) mg/dL Total Protein 6.1 L (6.2-8.2) g/dL
[2022-08-14] MEDS: NICOTINE 14MG/24HR PATCH TRANSDERM SCH (18:29)
[2022-08-14] MEDS: busPIRone HCl 5 MG TAB PO SCH (20:29)
[2022-08-14] MEDS ORDERED: GABAPENTIN 300 MG CAP PO SCH (21:00)
[2022-08-14] MEDS ORDERED: SENNOSIDES-DOCUSATE SODIUM 1 EACH TAB PO SCH (21:00)
[2022-08-15] MEDS: MORPHINE SULFATE 4 MG/ML SYRINGE IV PRN ×2 (06:20→12:27)
[2022-08-15] MEDS: NICOTINE 14MG/24HR PATCH TRANSDERM SCH (08:04)
[2022-08-15] MEDS: busPIRone HCl 5 MG TAB PO SCH (08:04)
[2022-08-15] MEDS: GABAPENTIN 300 MG CAP PO SCH ×2 (08:05→12:27)
--- NOTE | 2022-08-15 08:40 | P.PN ---
Subjective Patient is doing better this morning. The pain in her left ankle significantly improved since being placed in an external fixator. Her main issue is her right ankle. She continued to have pain and swelling. She reports a history of chronic ankle instability on the right ankle. Objective - Vital Signs Vital signs: Vital Signs Temp 98.1 F 08/15/22 07:18 Pulse 78 08/15/22 07:18 Resp 18 08/15/22 07:18 BP 96/61 08/15/22 07:18 Pulse Ox 97 08/15/22 07:18 FiO2 Intake & Output 08/14/22 08/15/22 08/15/22 18:59 06:59 18:59 Intake Total 2130 750 Output Total 1660 1150 Balance 470 -400 Intake: IV 1050 Oral 1080 750 Output: Urine 1650 1150 Estimated Blood Loss 10 Other: Voiding Method External Catheter - Exam The patient is resting comfortably in her bed. She is alert and able to answer questions. Left lower extremity: External fixator and Christofer wrap are placed. There is a small amount of blood over the distal pin sites. The tips of the toes are warm and well perfused with brisk capillary refill. She is able to actively plantarflex and dorsiflex her toes. Sensation is intact to light touch in her toes. Right lower extremity: Mild diffuse swelling and ecchymosis over the ankle. Tenderness over the anterolateral aspect of the ankle in the region of the ATFL. Palpable dorsalis pedis and posterior tibial pulse. - Labs CBC & Chem 7: 08/14/22 10:01 08/14/22 05:05 Labs: Abnormal Lab Results - Last 24 Hours (Table) 08/14/22 08/14/22 08/14/22 Range/Units 05:05 05:05 10:01 WBC 10.9 H (3.8-10.6) k/uL RBC 4.01 L (4.10-5.20) X 10*6/uL Plt Count 142 L (150-450) k/uL Neutrophils # 9.2 H (1.3-7.7) k/uL Anion Gap 9.90 L (10.00-18.00) mmol/L BUN/Creatinine Ratio 23.22 H (12.00-20.00) Ratio Glucose 112 H (70-110) mg/dL Total Protein 6.1 L (6.2-8.2) g/dL Assessment and Plan Assessment: Postoperative day #1 status post left ankle spanning external fixator Right ankle sprain with chronic varus laxity BMI 42.5 Current every day cigarette smoker Plan: The patient is to continue strict nonweightbearing on her left lower extremity. In regards the right ankle she has a moderate sprain for which we are going to try either a brace which she has in-house or her family members going to bring one of their boots. If the patient is able to safely mobilize today she can discharge home. She understands that she will need to follow-up with an orthopedic surgeon when she gets back to [place] early this week for definitive fixation. She was strongly encouraged to quit smoking.
[2022-08-15] MEDS ORDERED: VENLAFAXINE HCL ER 150 MG CAP PO SCH (09:00)
[2022-08-15] MEDS ORDERED: ALPRAZolam 0.5 MG TAB PO SCH (09:00)
[2022-08-15] MEDS ORDERED: SERTRALINE 100 MG TAB PO SCH (09:00)
--- NOTE | 2022-08-15 12:15 | CT ---
EXAMINATION TYPE: CT ankle LT wo con DATE OF EXAM: 08/15/2022 COMPARISON: Left ankle x-rays from last few days HISTORY: known fracture. for further surgical planning. priors in pacs CT DLP: 848.3 mGycm Automated exposure control for dose reduction was used. FINDINGS: Acute comminuted displaced fracture of the lateral malleolus is redemonstrated with a new tiny small fracture fragments at the fracture site noted. Slight posterior displacement of distal fracture fragm ent is seen. There is acute displaced fracture of the medial malleolus with 1.5 cm triangular shaped fracture fragment redemonstrated. There is additional acute oblique displaced fracture through the po sterior malleolus or posterior aspect of the distal tibia. Ankle mortise is widened laterally and ant eriorly. Tibiotalar joint otherwise is maintained on sagittal images. There is external fixating hard rodgers the calcaneus. Mild to moderate diffuse subcutaneous edema and soft tissue swelling. Remainder o f the midfoot structures is preserved. IMPRESSION: As above. Study for surgical planning.
[2022-08-15 14:55] VITALS: BP 106/67; PULSE 68; TEMP 98.3
[2022-08-15] MEDS: HYDROcodone/APAP 5-325MG 1 EACH TAB PO PRN (15:24)
[2022-08-15] MEDS: LACTATED RINGERS 1,000 ML IV SCH (15:34)
--- NOTE | 2022-08-15 18:48 | P.PN ---
Subjective Progress Note Date: 08/15/22 Hospital course: Patient is a pleasant 51-year-old female with past medical history of nicotine dependence, depression and anxiety. She presented to the emergency department on 08/13/22 status post fall resulting in dislocated trimalleolar ankle fracture. Patient was admitted under orthopedic surgery team and we were consulted for medical clearance and medical management throughout hospitalization. Patient underwent application of right ankle spanning external fixator by Dr. Fleming on 08/14/22. Physical exam: Patient seen and fully evaluated at bedside this morning. She reports currently controlled postoperative pain. Patient and the bedside with patient's ortho boot. Patient currently reports she is planning on staying in [place] to continue care with Dr. Fleming and to then return to [place]. Vital signs reviewed and stable. General: Nontoxic, no distress and appears stated age. Derm: Skin warm and dry, normal coloration for ethnicity. Head: Atraumatic, normocephalic and symmetric. Eyes: EOMs intact, no lid lag, and anicteric sclera Mouth: no lip lesions, mucus membranes moist Cardiovascular: regular rate and rhythm with normal S1S2, no murmur, positive posterior tibial pulses bilaterally, and cap refill < 2 seconds. Lungs: Respirations even, regular, and unlabored on room air. Lungs CTA bilaterally, no rhonchi, no rales, no wheezing, and no accessory muscle usage. Abdominal: soft, nontender to palpation, no guarding, no appreciable o rganomegaly Ext: Movement and sensation intact. No gross muscle atrophy, no edema, no contractures right ankle spanning external fixator device in place Neuro: Speech clear, face symmetrical and CN II-XII grossly intact with no noted focal neuro deficits Psych: Alert and oriented to person, place, time, and situation. Appropriate and pleasant affect. Assessment and Plan of Care: Dislocated trimalleolar ankle fracture status post application of right ankle spanning external fixator -Initial plan was for discharge home later today by orthopedic surgery, patient reports pain is uncontrolled and plan is for patient to stay the night in the hospital and discharged home tomorrow as she has a long drive back to [place]. -Symptomatic care and pain management. -Fall precautions -Management of external fixator, DVT prophylaxis, and pain management by primary admitting orthopedic surgery team. Anxiety and depression -Home medications reviewed and reordered Xanax 0.5 mg daily, BuSpar 15 mg 3 times daily, Neurontin 300 mg 3 times daily and 600 mg nightly, Zoloft 100 mg daily, and Effexor 150 mg daily. Nicotine dependence -Recommend smoking cessation -Order placed for nicotine patch 14 mg daily. Thank you for allowing us to participate in the care of this pleasant patient. Do not hesitate to contact us with questions. Someone can be reached from the [facility] hospitalist group all hours of the day at [phone] or via perfect serve. Patient was seen independently by Nurse Pracitioner. This document was prepared using [employer] dictation software. Please allow for errors in adolescent psychiatrist, while rare they do occur. Ishmael Obrien NP rendered care for this patient independently, reviewed the findings and plan as documented in the note above. I did not physically speak with or examine the patient on this date. Objective - Vital Signs Vital signs: Vital Signs Temp 98.1 F 08/15/22 07:18 Pulse 78 08/15/22 07:18 Resp 18 08/15/22 07:18 BP 96/61 08/15/22 07:18 Pulse Ox 97 08/15/22 07:18 FiO2 Intake & Output 08/14/22 08/15/22 08/15/22 18:59 06:59 18:59 Intake Total 2130 750 Output Total 1660 1150 Balance 470 -400 Intake: IV 1050 Oral 1080 750 Output: Urine 1650 1150 Estimated Blood Loss 10 Other: Voiding Method External Catheter - Labs CBC & Chem 7: 08/14/22 10:01 08/14/22 05:05 Labs: Abnormal Lab Results - Last 24 Hours (Table) 08/14/22 08/14/22 08/14/22 Range/Units 05:05 05:05 10:01 WBC 10.9 H (3.8-10.6) k/uL RBC 4.01 L (4.10-5.20) X 10*6/uL Plt Count 142 L (150-450) k/uL Neutrophils # 9.2 H (1.3-7.7) k/uL Anion Gap 9.90 L (10.00-18.00) mmol/L BUN/Creatinine Ratio 23.22 H (12.00-20.00) Ratio Glucose 112 H (70-110) mg/dL Total Protein 6.1 L (6.2-8.2) g/dL
== END 2022-08-15 15:35 | disposition home or self-care (01) ==
LOC: EC 13:07 → INTOOBSV 16:32 → 4SSUR 16:32 → UNDODISIN 08-15 15:35
PROVIDERS: ADMIT Orthopaedic Surgery; ATTEND Orthopaedic Surgery
DX: S82.852A Displaced trimalleolar fracture of left lower leg, initial encounter for closed fracture (principal); S93.491A Sprain of other ligament of right ankle, initial encounter; G89.18 Other acute postprocedural pain; F41.9 Anxiety disorder, unspecified; F17.210 Nicotine dependence, cigarettes, uncomplicated; M77.32 Calcaneal spur, left foot; E66.01 Morbid (severe) obesity due to excess calories; F32.A Depression, unspecified; Z79.899 Other long term (current) drug therapy; Z68.41 Body mass index [BMI] 40.0-44.9, adult; Z79.891 Long term (current) use of opiate analgesic; W01.0XXA Fall on same level from slipping, tripping and stumbling without subsequent striking against object, initial encounter; Y92.833 Campsite as the place of occurrence of the external cause
CPT/HCPCS: 96376 ×3; 96361; 96365; 96372; 99285; 27752; 99152; 93005; 97166; 64447; 64445; 80053; 85025; 73600 ×2; 73610; 73700; 27818; 20692; G0378 ×3; C1713; S4990; J2250; J0330; J2270 ×3; J1100; J0690 ×2; J2405; J3010; J2795; J2370; J2704 ×2; J2001; 99151

== ENCOUNTER 2022-08-26 11:30 | Observation (INO) | payer OTHER ==
[2022-08-23 12:11] VITALS: BMI 41.8
[~2022-08-26 11:30] MED LIST: DEXAMETHASONE SOD PHOSPHATE 4 MG/ML 1 ML VIAL IV ONE; HYDROmorphone 0.5 MG/0.5 ML SYRINGE IVP PRN; LIDOCAINE 1% (10MG/ML) FOR IV START INTRADERMA PRN; MIDAZOLAM 2 MG/2 ML VIAL IV PRN; ONDANSETRON 4 MG/2 ML VIAL IVP ONE
[2022-08-26] MEDS: LACTATED RINGERS 1,000 ML IV SCH (11:48)
[2022-08-26] MEDS ORDERED: MIDAZOLAM 2 MG/2 ML VIAL IVP ONE (12:33)
[2022-08-26] MEDS ORDERED: fentaNYL (PF) 50 MCG/ML 2 ML AMP IVP ONE (12:33)
--- NOTE | 2022-08-26 13:27 | P.ANPRN ---
Procedure Note - Anesthesia - Nerve Block Performed Left Adductor Canal Time Out Performed: Yes (12:32) Date of Procedure: 08/26/22 Procedure Start Time: :32 Procedure Stop Time: 12:37 Location of Patient: PreOp Indication: Acute Post-Operative Pain, Requested by Surgeon (DR Fleming) Sedation Type: Sedate with meaningful contact maintained Preparation: Sterile Prep Position: Supine Catheter: None Needle Types: Pajunk Needle Gauge: 21 Ultrasound used to visualize needle placement: Yes Ultrasound used to observe medication spread: Yes Injectate: 0.5% Ropivacaine (see comment for volume) (20cc) Blood Aspirated: No Pain Paresthesia on Injection Noted: No Resistance on Injection: Normal Image Stored and Saved: Yes Events: Uneventful and Well Tolerated
--- NOTE | 2022-08-26 13:28 | P.ANPRN ---
Procedure Note - Anesthesia - Nerve Block Performed Left Popliteal Time Out Performed: Yes Date of Procedure: 08/26/22 Procedure Start Time: 12:38 Procedure Stop Time: 12:43 Location of Patient: PreOp Indication: Acute Post-Operative Pain, Requested by Surgeon (Dr Fleming) Sedation Type: Sedate with meaningful contact maintained Preparation: Sterile Prep Position: Right Lateral Catheter: None Needle Types: Pajunk Needle Gauge: 21 Ultrasound used to visualize needle placement: Yes Ultrasound used to observe medication spread: Yes Injectate: 0.5% Ropivacaine (see comment for volume) (15cc +5cc PF Normal saline) Blood Aspirated: No Pain Paresthesia on Injection Noted: No Resistance on Injection: Normal Image Stored and Saved: Yes Events: Uneventful and Well Tolerated
[2022-08-26] MEDS ORDERED: HYDROmorphone (PF) 1 MG/ML ONE (13:57)
[2022-08-26] MEDS ORDERED: PROPOFOL 10 MG/ML 20 ML VIAL IV ONE (13:57)
[2022-08-26] MEDS ORDERED: MIDAZOLAM 2 MG/2 ML VIAL ONE (13:57)
[2022-08-26] MEDS ORDERED: ROPIVACAINE 5 MG/ML 30 ML VIAL ONE (13:57)
[2022-08-26] MEDS ORDERED: PHENYLEPHRINE-0.9% NACL SYG 1,000 MCG/10 ML SYRINGE ONE (13:57)
[2022-08-26] MEDS ORDERED: ROCURONIUM 10 MG/ML (5 ML VIAL) IV ONE (13:57)
[2022-08-26] MEDS ORDERED: NEOSTIGMINE 1 MG/ML 10 ML VIAL ONE (13:57)
[2022-08-26] MEDS ORDERED: SODIUM CHLORIDE 0.9% (PF) 10 ML VIAL ONE (13:57)
[2022-08-26] MEDS ORDERED: LIDOCAINE 2% INJ 20 MG/ML (2 ML VIAL) ONE (13:57)
[2022-08-26] MEDS ORDERED: fentaNYL (PF) 50 MCG/ML 2 ML AMP ONE (13:57)
[2022-08-26] MEDS ORDERED: SUCCINYLCHOLINE CHLORIDE 200 MG/10 ML VIAL IV ONE (13:57)
[2022-08-26] MEDS ORDERED: GLYCOPYRROLATE 0.2 MG/ML 2 ML VIAL ONE (13:57)
[2022-08-26] MEDS ORDERED: LACTATED RINGERS 1,000 ML IV ONE ×2 (14:46→16:24)
--- NOTE | 2022-08-26 17:30 | FL ---
Intraoperative/procedural fluoroscopic services were provided. Total fluoroscopy time is 3 minutes 49 seconds with a total of 6 submitted images to PACS. Please see the operative/procedural note for fur ther details. DAP: 2.1151 Gycm2
[2022-08-26] MEDS ORDERED: HYDROmorphone 0.5 MG/0.5 ML SYRINGE IVP PRN (17:36)
[2022-08-26] MEDS ORDERED: HYDROcodone/APAP 5-325MG 1 EACH TAB PO PRN (17:36)
[2022-08-26] MEDS ORDERED: ONDANSETRON 4 MG/2 ML VIAL IVP PRN (17:36)
--- NOTE | 2022-08-26 17:43 | P.OP ---
Date of Procedure: 08/26/22 Preoperative Diagnosis: 1. Left trimalleolar ankle fracture dislocation 2. Current every day cigarette smoker 3. BMI 42 Postoperative Diagnosis: Same Procedure(s) Performed: 1. Open reduction internal fixation left trimalleolar ankle fracture Anesthesia: iraj NAJERA Surgeon: Mukesh Fleming Survey Coordinator #1: Rajesh Diaz Estimated Blood Loss (ml): 50 IV fluids (ml): 1,100 Pathology: none sent Condition: stable Disposition: PACU Indications for Procedure: The patient is a very pleasant 51-year-old female with multiple medical problems including cutting current pack per day cigarette smoker and having a BMI 42 who presented to our ER just under 2 weeks ago with an acute injury to her left ankle. She was found to have an irreducible ankle fracture dislocation with a large posterior malleolus fragment and was admitted under my care. I placed an ankle spanning external fixator at that time. I met with the patient postoperatively. The patient is from [place] but has family in the area. My recommendation was for her to follow-up with an orthopedist in [place] as it would be easier for her to have her follow up closer to home, but the patient requested I perform her surgeries I placed her external fixture. I agreed to this and the patient stated that she would stay for 2 weeks postoperatively and then would likely follow-up all along this with an orthopedic surgeon closer to home. I had a long discussion with the patient prior to surgery on the potential risks and complications of ankle fracture surgery. These risks include but are not limited to risk of anesthesia, superficial infection, deep infection, delayed wound healing, superficial wound necrosis, deep wound necrosis, damage to local blood vessels or nerves, fracture nonunion, fracture malunion, postoperative displacement of the ankle mortise, postoperative displacement of the syndesmosis, malreduction of the ankle mortise, posttraumatic arthritis, chronic pain, chronic swelling, an inability to regain preinjury level of function, generalized dissatisfaction with surgical outcome, DVT, PE, other medical complications, and possibly loss of life or limb. The patient understands that while these are the most common complications there are other less common complications possible. They provided their verbal and written consent to go forward with surgery. We discussed her elevated risk of having a complication particularly her smoking and weight. She understands this. I strongly encouraged her to quit smoking. Description of Procedure: The patient was identified in preoperative holding and the correct left leg was marked with my initials. I took the bandages off of her leg and there was wrinkling of the skin. Her external fixator was also placed. She had a block placed by anesthesia. She was then brought back to the operating room. She was positioned on the or table where general anesthetic and preoperative antibiotics were given. A timeout was performed identifying the correct patient, operative extremity, and procedure. I then proceeded to remove the external fixator. A nonsterile U drape was applied. A presurgical scrub was performed using a chlorhexidine scrub brush and water. The left leg was then prepped and draped in the standard sterile fashion. The leg was elevated, exsanguinated with an Esmarch bandage, and the tourniquet was inflated to 250 mmHg. Given the comminution of the fibula, the relatively large posterior malleolus fragment, the patient's body habitus and her smoking status I elected to perform a straight lateral approach to the fibula and percutaneous reduction of the posterior malleolus fracture as opposed to a formal posterior lateral approach and open reduction of the posterior malleolus to reduce surgical morbidity of a more extensive surgical dissection. A straight lateral incision was made down to the fibula. A large branch of the superficial peroneal nerve was identified and carefully retracted. The periosteum over the fibula distally was incised and proximally the fascia over the peroneal muscles was incised in line with the skin incision. There is a highly comminuted fibula fracture with multiple fracture fragments. I was able to reduce two of the larger intercalary fracture fragments with akegj-ts-ecbsu reduction clamps and was able to place 2.0 mm lag screws across the fracture fragments nicely holding them reduced. Distally the fracture at the level of the ankle joint was comminuted and the patient had extremely poor bone quality. I placed a kjjkl-zs-rxmev reduction clamp which held the fracture reduced reasonably well. When attempting to place a 2.4 mm lag screw the anterior cortical bone fractured and there was not adequate bone to place a lag screw distally. At this point the distal fibula was pulled out to length and a K wire was used to hold it in place. Attention was then turned to the posterior malleolus fracture fragment. With the fibula relatively out to length the posterior malleolus was almost reduced through ligamentotaxis. I carefully dissected posterior to the fibula and placed a maribel of a large Napoles zzten-zp-jmeux reduction clamp over the posterior malleolus. A stab incision was made anterior to the distal tibia and the maribel was reduced and held. I gently tried to tease the posterior malleolus fracture fragment out to length using fluoroscopy to gauge reduction of the plafond on the lateral view. Once the fracture reduction was deemed adequate I placed 2 cannulated 4.0 mm screws through stab incisions from anterior to posterior across the fracture. The r eduction clamp was removed and the reduction held. I then placed a precontoured fibula plate over the lateral aspect of the distal fibula. Nonlocking 3.5 mm screws were placed proximally. A nonlocking 3.5 screws placed distally bringing the plate down to bone and then a locking 3.5 mm screws were placed into the plate to hold the reduction and fibula out to length. Due to the poor bone quality and patient's weight I placed a single 3.5 syndesmotic screw. Attention was then turned medially. A longitudinal incision was made over the medial malleolus. Dissection was carried down to subcu tissue. The saphenous nerve and vein were carefully retracted anteriorly. The medial malleolus fracture was identified and early consolidating hematoma was removed. The fracture was reduced and a single nonlocking 3.5 mm screws placed across the fracture generating excellent compression. I attempted to place a second screw but could not get past the syndesmotic screw. Final fluoroscopic images were taken including a mortise and a lateral view. The ankle mortise appeared relatively well reduced. A manual external rotation stress x-ray was taken in the mortise view to verify that the ankle was reduced and stable. I then brought the fluoroscopy into a lateral view and applied a posterior directed force to the foot and the talus remained reduced under the tibial plafond. All wounds were then thoroughly irrigated and closed in layers. Sterile dressings were applied followed by a well-padded bulky Craig splint with the ankle in neutral. The patient was awoken from her anesthetic Transferred to an or table to the [facility], and brought to recovery having tolerated the procedure well. Rajesh Diaz PA-C was required as a skilled collections assistant due to the complexity of surgery for patient positioning, reduction of fracture, exposure, placement of hardware, closure of wound, and application of splint. Plan: The patient is going to be admitted overnight for pain control and 2 doses of postoperative antibiotics. She is going to try to discharge home tomorrow. She will need follow-up in the office in 2 weeks for splint removal, wound check, and nonweightbearing x-rays of the left ankle. Based on preoperative risk stratification she'll be treated with aspirin for DVT prophylaxis.
[2022-08-27] MEDS: HYDROcodone/APAP 5-325MG 1 EACH TAB PO PRN ×4 (02:03→23:11)
[2022-08-27] MEDS: HYDROmorphone 0.5 MG/0.5 ML SYRINGE IVP PRN (04:46)
[2022-08-27] MEDS: HYDROmorphone 1 MG/ML 1 ML SYRINGE IVP PRN ×4 (07:35→20:03)
--- NOTE | 2022-08-27 10:04 | P.PN ---
Subjective Progress Note Date: 08/27/22 This is a 51-year-old female who is status post ORIF of left trimalleolar ankle fracture. This is postoperative day #1 and patient is seen and evaluated at bedside today. Patient states that she has been very painful and is not comfortable discharging home today because of the pain. Objective - Vital Signs Vital signs: Vital Signs Temp 98.5 F 08/27/22 07:00 Pulse 90 08/27/22 07:00 Resp 16 08/27/22 07:00 BP 121/78 08/27/22 07:00 Pulse Ox 97 08/27/22 07:00 FiO2 Intake & Output 08/26/22 08/27/22 08/27/22 18:59 06:59 18:59 Intake Total 1850 240 Output Total 50 1000 600 Balance 1800 -1000 -360 Weight 109.09 kg 109.09 kg Intake: IV 1850 Oral 240 Output: Urine 1000 600 Estimated Blood Loss 50 Other: Voiding Method External Catheter # Voids 3 - Exam On exam patient is resting comfortably in bed in no acute distress. Patient is alert and oriented 3. Splint is clean, dry and intact to the left lower extremity. Left lower extremity is elevated. Capillary refill is normal at less than 2 seconds. Sensation intact. Neurovascular status and circulatory status are intact. Assessment and Plan Assessment: Status post ORIF left trimalleolar ankle fracture. (1) Status post ORIF of fracture of ankle Current Visit: Yes Status: Acute Code(s): Z98.890 - OTHER SPECIFIED POSTPROCEDURAL STATES; Z87.81 - PERSONAL HISTORY OF (HEALED) TRAUMATIC FRACTURE SNOMED Code(s): 67905153210155303 (2) Fracture dislocation of left ankle Current Visit: No Status: Acute Code(s): S82.892A - OTH FRACTURE OF LEFT LOWER LEG, INIT FOR CLOS FX SNOMED Code(s): 154834845 Plan: 1. Patient is to remain strictly nonweightbearing to the left lower extremity. Patient is to continue elevating the left lower extremity. 2. Continue routine postoperative care and pain control. Patient's home medications have been restarted including gabapentin and ibuprofen which will likely assist with pain control. 3. Anticoagulation with aspirin 81 mg twice a day. 4. Patient is to work with physical therapy today. Planning for discharge home tomorrow.
[2022-08-27] MEDS: IBUPROFEN 600 MG TAB PO PRN (10:47)
[2022-08-27] MEDS: LACTATED RINGERS 1,000 ML IV SCH (11:35)
[2022-08-27] MEDS: GABAPENTIN 300 MG CAP PO SCH ×3 (12:57→20:02)
[2022-08-27] MEDS: CEPHALEXIN 500 MG CAP PO SCH ×3 (12:58→20:03)
[2022-08-27] MEDS: busPIRone HCl 5 MG TAB PO SCH ×2 (17:01→20:02)
[2022-08-27] MEDS: DOCUSATE 100 MG CAP PO SCH (20:02)
[2022-08-27] MEDS: ASPIRIN 81 MG PO SCH (20:02)
[2022-08-28] MEDS: HYDROmorphone 1 MG/ML 1 ML SYRINGE IVP PRN ×4 (00:33→17:30)
[2022-08-28] MEDS: HYDROcodone/APAP 5-325MG 1 EACH TAB PO PRN ×2 (05:58→21:42)
[2022-08-28] MEDS: LACTATED RINGERS 1,000 ML IV SCH (07:41)
--- NOTE | 2022-08-28 08:37 | P.PN ---
Subjective The patient continues to have significant pain in her left ankle. She states it's 10 out of 10 with any movement. She has no other complaints. Objective - Vital Signs Vital signs: Vital Signs Temp 98.6 F 08/28/22 07:00 Pulse 90 08/28/22 07:00 Resp 16 08/28/22 07:00 BP 125/72 08/28/22 07:00 Pulse Ox 93 L 08/28/22 07:00 FiO2 Intake & Output 08/27/22 08/28/22 08/28/22 18:59 06:59 18:59 Intake Total 240 Output Total 600 500 Balance -360 -500 Intake: Oral 240 Output: Urine 600 500 Other: Voiding Method External Catheter External Catheter - Exam The patient is sitting up in her bed. She appears comfortable and is able to answer questions. A focused exam of the left lower extremity was conducted. She has a clean appearing splint with no drainage. The tips of her toes are warm and well perfused. She can actively plantarflex and dorsiflex her toes. Assessment and Plan Assessment: Postoperative day #2 status post left trimalleolar ankle fracture open reduction internal fixation BMI 42 Current every day cigarette smoker Plan: The patient continues to have significant pain in her left ankle. Since she lives and was constant she would like to stay another night for pain control. We will continue to work on transitioning her from IV to oral pain medications. She has been strictly nonweightbearing on her left lower extremity. Encourage her to ice and elevate her leg. DVT prophylaxis with aspirin 81 mg twice a day. We'll plan on discharge home tomorrow if she is more comfortable.
[2022-08-28] MEDS: busPIRone HCl 5 MG TAB PO SCH ×3 (08:47→21:37)
[2022-08-28] MEDS: ASPIRIN 81 MG PO SCH ×2 (08:48→21:37)
[2022-08-28] MEDS: GABAPENTIN 300 MG CAP PO SCH ×4 (08:48→21:37)
[2022-08-28] MEDS: CEPHALEXIN 500 MG CAP PO SCH ×4 (08:48→21:37)
[2022-08-28] MEDS: SERTRALINE 50 MG TAB PO SCH (08:48)
[2022-08-28] MEDS: VENLAFAXINE HCL ER 150 MG CAP PO SCH (08:48)
[2022-08-28] MEDS: DOCUSATE 100 MG CAP PO SCH ×2 (08:48→21:37)
[2022-08-28] MEDS: IBUPROFEN 600 MG TAB PO PRN (10:45)
[2022-08-28] MEDS: HYDROmorphone 0.5 MG/0.5 ML SYRINGE IVP PRN (10:45)
[2022-08-29] MEDS: LACTATED RINGERS 1,000 ML IV SCH (06:59)
[2022-08-29] MEDS: GABAPENTIN 300 MG CAP PO SCH (08:07)
[2022-08-29] MEDS: busPIRone HCl 5 MG TAB PO SCH (08:08)
[2022-08-29] MEDS: VENLAFAXINE HCL ER 150 MG CAP PO SCH (08:08)
[2022-08-29] MEDS: SERTRALINE 50 MG TAB PO SCH (08:08)
[2022-08-29] MEDS: CEPHALEXIN 500 MG CAP PO SCH (08:09)
[2022-08-29] MEDS: ASPIRIN 81 MG PO SCH (08:28)
[2022-08-29] MEDS: DOCUSATE 100 MG CAP PO SCH (08:28)
[2022-08-29 08:33] VITALS: BP 122/78; PULSE 75; RESP 18; TEMP 99.6
--- NOTE | 2022-08-29 09:56 | P.DS ---
Providers Expected date of discharge: 08/29/22 Attending physician: Mukesh Fleming Primary care physician: Stated None Hospital Course: This patient is a 51- year old female who sustained a trimalleolar ankle fracture about two weeks ago. Her ankle was found to be irreducible in the emergency department, therefore an ankle spanning external fixator was placed. Patient followed up in the office as an outpatient and surgery was scheduled. Patient underwent an open reduction internal fixation for right trimalleolar ankle fracture on 08/26/22. The procedure is performed without complication or sequela. The patient is doing well on post-op day #3. Patient is examined bedside this morning. She states her pain is well-controlled on oral [place]. She has not received IV diluadid since yesterday. She would like to return home today. Patient otherwise feels well and denies chest pain, shortness of breath, nausea, vomiting. On examination, patient is sitting up in bed in no apparent distress. She is alert and orientated x3. On inspection of the right lower extremity, there is a clean, dry, intact bulky Craig splint in place. Visible portion of the toes are warm and well perfused with brisk capillary refill. She is able to wiggle toes appropriately. Patient is discharged home today in good condition. She should follow-up in the office in two weeks at [facility]. Please see med rec for accurate list of discharge medications. Plan - Discharge Summary Discharge Rx Participant: No New Discharge Prescriptions: New Aspirin 81 mg PO BID 30 Days #60 tab Docusate [Colace] 100 mg PO BID #60 capsule HYDROcodone/APAP 5-325MG [[place] 5-325] 1 - 2 tab PO Q6HR PRN 7 Days #30 tab PRN Reason: Pain Cephalexin [Keflex] 500 mg PO Q6HR 14 Days #56 cap No Action busPIRone HCL 15 mg PO TID ALPRAZolam [Xanax] 0.5 mg PO DAILY Gabapentin [Neurontin] 300 mg PO TID@0900,1300,1700 Aspirin 81 mg PO BID 30 Days #60 tab HYDROcodone/APAP 5-325MG [[place] 5-325] 1 - 2 tab PO Q6HR PRN 7 Days #30 tab PRN Reason: Pain Cephalexin [Keflex] 500 mg PO QID Ibuprofen [Motrin] 600 mg PO Q8HR PRN #24 tab PRN Reason: Pain Venlafaxine HCl [Effexor XR] 150 mg PO DAILY Sertraline [Zoloft] 150 mg PO DAILY Gabapentin [Neurontin] 600 mg PO HS Docusate [Colace] 100 mg PO BID #60 capsule Discharge Medication List ALPRAZolam [Xanax] 0.5 mg PO DAILY 08/13/22 [History] Gabapentin [Neurontin] 300 mg PO TID@0900,1300,1700 08/13/22 [History] Gabapentin [Neurontin] 600 mg PO HS 08/13/22 [History] Ibuprofen [Motrin] 600 mg PO Q8HR PRN #24 tab 08/13/22 [Rx] Sertraline [Zoloft] 150 mg PO DAILY 08/13/22 [History] Venlafaxine HCl [Effexor XR] 150 mg PO DAILY 08/13/22 [History] busPIRone HCL 15 mg PO TID 08/13/22 [History] Aspirin 81 mg PO BID 30 Days #60 tab 08/14/22 [Rx] Docusate [Colace] 100 mg PO BID #60 capsule 08/14/22 [Rx] HYDROcodone/APAP 5-325MG [[place] 5-325] 1 - 2 tab PO Q6HR PRN 7 Days #30 tab 08/14/22 [Rx] Cephalexin [Keflex] 500 mg PO QID 08/23/22 [History] Aspirin 81 mg PO BID 30 Days #60 tab 08/26/22 [Rx] Cephalexin [Keflex] 500 mg PO Q6HR 14 Days #56 cap 08/26/22 [Rx] Docusate [Colace] 100 mg PO BID #60 capsule 08/26/22 [Rx] HYDROcodone/APAP 5-325MG [[place] 5-325] 1 - 2 tab PO Q6HR PRN 7 Days #30 tab 08/26/22 [Rx] Follow up Appointment(s)/Referral(s): Mukesh Fleming MD [Medical Doctor] - 2 Weeks Patient Instructions/Handouts: *Surgery [facility] - (Anesthesia) Discharge Instructions Outpatient Surgery, Peripheral Nerve Block (DC), ORIF of an Ankle Fracture (DC) Activity/Diet/Wound Care/Special Instructions: Strict non-weight bearing operative extremity. Use crutches, walker, knee scooter for mobilization. Keep splint in place until follow-up in the office. Do not remove splint. Keep operative extremity elevated for swelling and pain control. Take pain medication as needed. Take aspirin 81mg twice a day x 4 weeks for blood clot prevention. Take antibiotics as prescribed. Follow-up in the office in two weeks at [facility]. Call the office with any questions or concerns, Discharge Disposition: HOME SELF-CARE
== END 2022-08-29 12:39 | disposition home or self-care (01) ==
LOC: OR 11:30 → 6NMEDSUR 18:16 → OR 08-29 09:27
PROVIDERS: ADMIT Orthopaedic Surgery; ATTEND Orthopaedic Surgery
DX: S82.852A Displaced trimalleolar fracture of left lower leg, initial encounter for closed fracture (principal); X58.XXXA Exposure to other specified factors, initial encounter; G89.18 Other acute postprocedural pain; F17.210 Nicotine dependence, cigarettes, uncomplicated
CPT/HCPCS: 97161; 64447; 64445; 73600; 27822; G0378; C1713; J2250; J0330; J1100; J2710; J0690 ×2; J2405; J3010; J1170 ×5; J2795; J2370; J2704; J2001